=== PATIENT | female | born 1955 | race Asian ===

== ENCOUNTER 2023-12-05 00:51 | Emergency (ER) | payer OTHER ==
[~2023-12-05] VITALS: Ht 160 cm; Wt 61.0 kg
[2023-12-05 00:59] VITALS: O2SAT 99
[2023-12-05 01:33] LABS: BASOPHILS % 0.3 % (0.0-2.0); EOSINOPHILS % 3.8 % (0.0-5.0); HEMATOCRIT. 36.4 % (36.0-48.0); HEMOGLOBIN. 12.1 g/dL (12.0-16.0); LYMPHOCYTES % 41.4 % (20.0-50.0); MEAN CORPUSCULAR HEMOGLOBIN 32.6 pg (28.0-32.0); MEAN CORPUSCULAR HGB CONC 33.3 g/dL (31.0-37.0); MEAN CORPUSCULAR VOLUME 97.7 fL (81.0-99.0); MONOCYTES % 8.7 % (2.0-8.0); NEUTROPHILS % 45.8 % (40.0-76.0); PLATELET 151 x1000/uL (130-400); RED BLOOD CELL COUNT 3.72 mill/uL (4.2-5.4); RED CELL DISTRIBUTION WIDTH 13.5 % (11.6-14.6); WHITE BLOOD COUNT 6.4 x1000/uL (4.5-11.0)
[2023-12-05 01:47] LABS: ALANINE AMINOTRANSFERASE 16 IU/L (10-49); ALBUMIN 3.6 g/dL (3.2-4.8); ASPARTATE AMINOTRANSFERASE 24 IU/L (<34); BILIRUBIN TOTAL 0.4 mg/dL (0.1-1.0); CARBON DIOXIDE 30 mEq/L (21-32); CHLORIDE 102 mEq/L (98-107); CREATININE 0.9 mg/dL (0.6-1.0); GLUCOSE 106 mg/dL (70-105); POTASSIUM 3.3 mEq/L (3.5-5.1); PROTEIN TOTAL 6.2 g/dL (6.0-8.3); SODIUM 138 mEq/L (136-145); UREA NITROGEN BLOOD 14 mg/dL (9-23)
[2023-12-05 02:17] LABS: PROTHROMBIN TIME 10.8 sec (9.6-11.0)
[2023-12-05 02:20] VITALS: BP 126/49; PULSE 64; RESP 17; TEMP 97.8
[2023-12-05] MEDS: SODIUM CHLORIDE 0.9% 1,000 ML IV ONE (02:21)
[2023-12-05] MEDS: ACETAMINOPHEN 325MG TABLET PO STA (02:21)
[2023-12-05] MEDS: ONDANSETRON HCL 4MG/2ML INJ IV STA (02:21)
[2023-12-05] MEDS: IOHEXOL-300 100 ML BOTTLE ONE (02:49)
[2023-12-05 03:40] LABS: CLARITY URINE CLEAR (CLEAR); COLOR URINE YELLOW (YELLOW); GLUCOSE URINE NEGATIVE (NEGATIVE); KETONES URINE NEGATIVE (NEGATIVE); LEUKOCYTE ESTERASE URINE NEGATIVE (NEGATIVE); NITRITE URINE NEGATIVE (NEGATIVE); OCCULT BLOOD URINE TRACE (NEGATIVE); PH URINE 6.5 (4.5-8.0); PROTEIN URINE NEGATIVE (NEGATIVE); SPECIFIC GRAVITY URINE 1.023 (1.005-1.030); UROBILINOGEN URINE 0.2 E.U./dL (0.2-1.0)
[2023-12-05] MEDS ORDERED: ONDA4TAB50 MT (04:20)
[2023-12-05] MEDS ORDERED: IMOD MT (04:20)
[2023-12-05 04:25] LABS: BACTERIA URINE NONE SEEN; RBC URINE NONE SEEN /hpf (0-2); SQUAMOUS EPITHELIAL CELL URINE NONE SEEN /lpf (RARE/1+); WBC URINE NONE SEEN /hpf (0-2)
== END 2023-12-05 05:12 | disposition home or self-care (01) ==
LOC: ER 00:59
DX: B34.8 Other viral infections of unspecified site (principal); R10.32 Left lower quadrant pain; I10 Essential (primary) hypertension
CPT/HCPCS: 99285; 74177; 96374; 96361; 80053; 81003; 83605; 83690; 85025; 85610; 36415; Q9967; J2405; J7030